=== PATIENT | male | born 1945 | race Caucasian/White ===

== ENCOUNTER 2017-05-30 09:17 | Emergency (ER) | payer MEDICARE, MEDICAID ==
[~2017-05-30] VITALS: Ht 180.3 cm; Wt 122.5 kg
[~2017-05-30 09:17] MED LIST: AMLO10TA2 PO; ATOR10TA PO; BLOO-140 IN; DIPH25TA62 PO; DONE10TA44 PO; ESCI20TA PO; FENO145T PO; GABA-534 PO; INSU100V26 SQ; INSU100V7 SQ; METO-302 PO; PANT40TA4 PO; TEST200V3 IM; TRIA80OI TP
--- NOTE | 2017-05-30 09:20 | NUR ---
Pt bb private ems from [facility] for ble weakness since last night. VSS. Seen by MD for eval. Safety and comfort measures provided. Will monitor.
--- NOTE | 2017-05-30 09:40 | NUR ---
PT TAKEN TO CT.
[2017-05-30 10:09] LABS: BASOPHILS % (AUTO) 0.6 % (0.0-2.0); EOSINOPHILS # (AUTO) 0.3 /CMM (0.0-0.7); EOSINOPHILS % (AUTO) 3.8 % (0.0-6.0); HEMATOCRIT 39 % (39-51); LYMPHOCYTES # (AUTO) 1.3 /CMM (0.8-4.8); LYMPHOCYTES % (AUTO) 16.4 % (20.0-44.0); MEAN CORPUSCULAR HEMOGLOBIN 27 PG (26.0-33.0); MEAN CORPUSCULAR HGB CONC 33 g/dl (31.0-36.0); MEAN CORPUSCULAR VOLUME 81 fL (80-96); MONOCYTES # (AUTO) 0.8 /CMM (0.1-1.30); MONOCYTES % (AUTO) 10.1 % (2.0-12.0); NEUTROPHILS # (AUTO) 5.4 /CMM (1.8-8.9); NEUTROPHILS % (AUTO) 69.1 % (43.0-81.0); PLATELET COUNT (AUTO) 152 /CMM (150-450); RDW COEFFICIENT OF VARIATION 12.7 (11.5-15.0); RED BLOOD CELL COUNT(AUTO) 4.88 MIL/uL (4.5-6.0); WHITE BLOOD COUNT (AUTO) 7.8 K/uL (4.3-11.0)
[2017-05-30 10:16] LABS: CALCIUM, SERUM 8.4 mg/dL (8.5-10.1); CARBON DIOXIDE 28 mmol/L (21-32); CHLORIDE 106 mmol/L (98-107); CREATININE 1.2 mg/dL (0.6-1.3); GLUCOSE 207 mg/dL (74-106); POTASSIUM 4.9 mmol/L (3.5-5.1); SODIUM SERUM 139 mmol/L (136-145); UREA NITROGEN, BLOOD 18 mg/dL (7-18)
[2017-05-30 10:21] LABS: ALANINE AMINOTRANSFERASE 24 U/L (12-78); ALBUMIN 3.1 g/dL (3.4-5.0); ALKALINE PHOSPHATASE 113 U/L (46-116); ASPARTATE AMINOTRANSFERASE 22 U/L (15-37); BILIRUBIN,TOTAL 0.4 mg/dL (0.2-1.0)
--- NOTE | 2017-05-30 11:30 | NUR ---
Patient is resting comfortably in bed with eyes closed. Easily aroused. VSS
[2017-05-30] MEDS ORDERED: LORAZEPAM 1 MG TABLET PO ONE (13:30)
[2017-05-30] MEDS ORDERED: LORAZEPAM 1 MG TABLET ONE (13:31)
--- NOTE | 2017-05-30 13:40 | NUR ---
CALLED [facility] FOR TRANSPORTATION GOING BACK TO [facility] ETA 1 HOUR
[2017-05-30 14:03] VITALS: BP 131/60
--- NOTE | 2017-05-30 14:55 | NUR ---
IV removed. Catheter intact and site benign. Pressure and 4x4 applied to site. No bleeding noted.
--- NOTE | 2017-05-30 15:01 | NUR ---
Patient discharged to home VIA [facility] in stable condition. Written and verbal after care instructions given. Patient AND EMS verbalizeD understanding of instruction.
== END 2017-05-30 15:04 | disposition home or self-care (01) ==
LOC: ER 09:20
DX: R25.3 Fasciculation (principal); E11.65 Type 2 diabetes mellitus with hyperglycemia; E78.5 Hyperlipidemia, unspecified; I10 Essential (primary) hypertension; Z79.4 Long term (current) use of insulin
CPT/HCPCS: 36415; 70450; 80053; 85025; 99285; A4606; Z7610

== ENCOUNTER 2017-07-19 02:27 | Emergency (ER) | payer MEDICARE, MEDICAID ==
[~2017-07-19] VITALS: Ht 182.9 cm; Wt 99.8 kg
--- NOTE | 2017-07-19 02:35 | NUR ---
TO BED 3 BIB PRIVATE AMBULANCE C/O TREMORS X3 DAYS. PT AAOX4 NO ACUTE DISTRESS NOTED, RESP EVEN AND UNLABORED. PT DENIES ANY OTHER COMPLAINTS. PT DENIES PAIN OR DISCOMFORT AT THIS TIME. ER MD AT BEDSIDE TO TOMAS PT.
[2017-07-19] MEDS ORDERED: diphenhydrAMINE HCL 50 MG/ML VIAL ONE (02:49)
--- NOTE | 2017-07-19 02:56 | NUR ---
PT MEDICATED ORDERED.
[2017-07-19] MEDS ORDERED: diphenhydrAMINE HCL 50 MG/ML VIAL IM ONE (03:00)
--- NOTE | 2017-07-19 03:34 | NUR ---
PT ASLEEP, NO ACUTE DISTRESS NOTED, RESP EVEN AND UNLABORED. CALL LIGHT WIHTIN REACH.
--- NOTE | 2017-07-19 03:54 | NUR ---
[facility] CALLED FOR TRANSPORT. ETA 30 MIN.
--- NOTE | 2017-07-19 03:55 | NUR ---
REPORT CALLED TO [facility] STAFF JAN.
--- NOTE | 2017-07-19 04:28 | NUR ---
TRANSPORT AT BEDSIDE REPORT GIVEN TO EMT.
[2017-07-19 04:33] VITALS: BP 135/78
== END 2017-07-19 04:33 | disposition home or self-care (01) ==
LOC: ER 02:28
DX: R25.1 Tremor, unspecified (principal); E11.9 Type 2 diabetes mellitus without complications; E78.5 Hyperlipidemia, unspecified; I10 Essential (primary) hypertension; Z79.4 Long term (current) use of insulin; Z86.73 Personal history of transient ischemic attack (TIA), and cerebral infarction without residual deficits
CPT/HCPCS: 82962; 96372; 99283; A4606; J1200; Z7610

== ENCOUNTER 2017-10-08 23:12 | Emergency (ER) | payer MEDICARE, MEDICAID ==
[~2017-10-08] VITALS: Ht 180.3 cm; Wt 122.0 kg
--- NOTE | 2017-10-08 23:12 | NUR ---
to bed 4 bib paramedics pt was given 400mg seroquel at 2100. pt aaox4 no acute distress noted, resp even and unlabored. er md at bedside to eval pt with orders received.
--- NOTE | 2017-10-08 23:22 | NUR ---
[facility] CALLED ETA 90 MIN. TRANSFER #[id number]
--- NOTE | 2017-10-09 00:24 | NUR ---
transport at bedside report given to emt.
[2017-10-09 00:27] VITALS: BP 130/73
== END 2017-10-09 00:28 | disposition home or self-care (01) ==
LOC: ER 23:15
DX: Z00.8 Encounter for other general examination (principal); E11.9 Type 2 diabetes mellitus without complications; E78.00 Pure hypercholesterolemia, unspecified; I10 Essential (primary) hypertension; Z79.4 Long term (current) use of insulin; Z86.73 Personal history of transient ischemic attack (TIA), and cerebral infarction without residual deficits
CPT/HCPCS: 82962; 99283; A4606; Z7610

== ENCOUNTER 2018-03-06 19:15 | Emergency (ER) | payer MEDICAID, MEDICARE ==
[~2018-03-06] VITALS: Ht 180.3 cm; Wt 117.9 kg
[~2018-03-06 19:15] MED LIST changes: -AMLO10TA2 PO; +AMLO10TA6 PO; -INSU100V26 SQ; +INSU100V30 SQ; -METO-302 PO; +METO-356 PO
--- NOTE | 2018-03-06 19:25 | NUR ---
18G IV TO R AC X 1 ATTEMPT USING ASEPTIC TECH, BLOOD HANDED OVER TO LAB AT THE BEDSIDE. IV FLUSHES EASILY WITH NS, NO S/S INFILTRATION NOTED.
[2018-03-06] MEDS ORDERED: LORAZEPAM INJ 2 MG/ML VIAL IV ONE (19:30)
[2018-03-06] MEDS ORDERED: LORAZEPAM INJ 2 MG/ML VIAL ONE (19:36)
--- NOTE | 2018-03-06 19:37 | NUR ---
PT BBPA FROM SNF C/O OF L ARM SHAKINESS AND DRIFT SINCE "LAST NIGHT". PT IS AAOX4. ABLE TO MOVE ALL EXTREMITIES. L ARM DRIFT NOTED WHILE MD BEDSIDE EVALUATING PT. PT STATES "THIS HAPPENS ONCE A YEAR". RESP EVEN AND UNLABORED. NO S/S OF ACUTE DISTRESS NOTED. VSS. PT SAFETY AND COMOFRT MEASURES IN PLACE. PT PLACED ON MONITOR AND POX. CALL LIGHT WITHIN REACH. MD BEDSIDE. BLOOD SPECIMEN SENT TO LAB. WILL CONTINUE TO MONITOR PT.
[2018-03-06 19:41] LABS: BASOPHILS % (AUTO) 0.7 % (0.0-2.0); EOSINOPHILS % (AUTO) 3.8 % (0.0-6.0); HEMATOCRIT 41 % (39-51); HEMOGLOBIN 13.7 g/dL (13.5-17.5); LYMPHOCYTES # (AUTO) 0.9 /CMM (0.8-4.8); LYMPHOCYTES % (AUTO) 15.9 % (20.0-44.0); MEAN CORPUSCULAR HGB CONC 33 g/dl (31.0-36.0); MEAN CORPUSCULAR VOLUME 80 fL (80-96); MONOCYTES # (AUTO) 0.4 /CMM (0.1-1.30); MONOCYTES % (AUTO) 7.4 % (2.0-12.0); NEUTROPHILS # (AUTO) 4.2 /CMM (1.8-8.9); NEUTROPHILS % (AUTO) 72.2 % (43.0-81.0); PLATELET COUNT (AUTO) 154 /CMM (150-450); RDW COEFFICIENT OF VARIATION 13.6 (11.5-15.0); RED BLOOD CELL COUNT(AUTO) 5.16 MIL/uL (4.5-6.0); WHITE BLOOD COUNT (AUTO) 5.7 K/uL (4.3-11.0)
[2018-03-06 19:47] LABS: CALCIUM, SERUM 8.6 mg/dL (8.5-10.1); CARBON DIOXIDE 28 mmol/L (21-32); CHLORIDE 103 mmol/L (98-107); CREATININE 1.1 mg/dL (0.6-1.3); GLUCOSE 310 mg/dL (74-106); POTASSIUM 4.9 mmol/L (3.5-5.1); SODIUM SERUM 138 mmol/L (136-145); UREA NITROGEN, BLOOD 18 mg/dL (7-18)
[2018-03-06 19:51] LABS: INR 0.87 (0.85-1.15)
[2018-03-06 19:54] LABS: ALANINE AMINOTRANSFERASE 25 U/L (12-78); ALBUMIN 3.3 g/dL (3.4-5.0); ALKALINE PHOSPHATASE 143 U/L (46-116); ASPARTATE AMINOTRANSFERASE 12 U/L (15-37); BILIRUBIN,DIRECT 0.1 mg/dL (0.0-0.2); BILIRUBIN,TOTAL 0.3 mg/dL (0.2-1.0); TOTAL PROTEIN, SERUM 6.6 g/dL (6.4-8.2)
[2018-03-06 19:55] LABS: TROPONIN I < 0.017 ng/mL (0.00-0.056)
--- NOTE | 2018-03-06 20:39 | NUR ---
Patient is resting comfortably in bed with eyes closed. Easily aroused. VSS. NO S/S OF DISTRESS NOTED. WILL CONTINUE TO MONITOR
--- NOTE | 2018-03-06 21:28 | NUR ---
[id number] [facility] concetta fitzgerald took report for patient trasnport
--- NOTE | 2018-03-06 21:31 | NUR ---
CALLED [facility] FOR TRANSPORT BACK TO [facility], ETA [phone], TRIP #[id number]
--- NOTE | 2018-03-06 22:05 | NUR ---
Patient is resting comfortably in bed with eyes closed. Easily aroused. VSS
--- NOTE | 2018-03-06 23:20 | NUR ---
AMBUL BEDSIDE TO RECEIVE REPORT. REPORT GIVEN TO AMBUL TRANSPORT TEAM. PT BEING DISCHARGED BACK TO FACILITY.
--- NOTE | 2018-03-06 23:23 | NUR ---
Patient discharged to home in stable condition. Written and verbal after care instructions given. Patient verbalizes understanding of instruction.IV removed. Catheter intact and site benign. Pressure and 4x4 applied to site. No bleeding noted. VSS upon discharge.
[2018-03-06 23:24] VITALS: BP 145/78
== END 2018-03-06 23:25 | disposition home or self-care (01) ==
LOC: ER 19:16
DX: R25.1 Tremor, unspecified (principal); R25.3 Fasciculation; E11.9 Type 2 diabetes mellitus without complications; E78.00 Pure hypercholesterolemia, unspecified; I10 Essential (primary) hypertension; I70.0 Atherosclerosis of aorta; Z79.4 Long term (current) use of insulin; Z86.73 Personal history of transient ischemic attack (TIA), and cerebral infarction without residual deficits; Z60.2 Problems related to living alone
CPT/HCPCS: 36415; 70450; 71045; 80048; 80076; 82962; 84484; 85025; 85730; 93005; 96374; 99285; A4606; J2060; Z7610

== ENCOUNTER 2019-03-01 11:46 | Emergency (ER) | payer MEDICARE, MEDICAID ==
[~2019-03-01] VITALS: Ht 180.3 cm; Wt 134.7 kg
[~2019-03-01 11:46] MED LIST changes: -AMLO10TA6 PO; +AMLO10TA7 PO
--- NOTE | 2019-03-01 12:00 | NUR ---
SHAKING EPISODES X 2 DAYS,STS IT HAPPENS TWICE A YEAR. PT AAOX3, VSS. DENIES CP, SOB, DIZZINESS, N/V/D AT THIS TIME. AWAITING EVAL BY CASEY/PA & WILL CONT TO MONITOR.
[2019-03-01 12:13] LABS: BASOPHILS # (AUTO) 0.1 /CMM (0.0-0.2); BASOPHILS % (AUTO) 0.9 % (0.0-2.0); EOSINOPHILS % (AUTO) 2.9 % (0.0-6.0); HEMATOCRIT 38 % (39-51); HEMOGLOBIN 12.6 g/dL (13.5-17.5); LYMPHOCYTES # (AUTO) 0.9 /CMM (0.8-4.8); LYMPHOCYTES % (AUTO) 9.2 % (20.0-44.0); MEAN CORPUSCULAR HGB CONC 33 g/dl (31.0-36.0); MEAN CORPUSCULAR VOLUME 83 fL (80-96); MONOCYTES # (AUTO) 0.7 /CMM (0.1-1.30); MONOCYTES % (AUTO) 6.7 % (2.0-12.0); NEUTROPHILS # (AUTO) 7.8 /CMM (1.8-8.9); NEUTROPHILS % (AUTO) 80.3 % (43.0-81.0); PLATELET COUNT (AUTO) 136 /CMM (150-450); RED BLOOD CELL COUNT(AUTO) 4.61 MIL/uL (4.5-6.0); WHITE BLOOD COUNT (AUTO) 9.7 K/uL (4.3-11.0)
[2019-03-01] MEDS ORDERED: diphenhydrAMINE HCL 50 MG/ML VIAL ONE (12:27)
[2019-03-01] MEDS ORDERED: LORAZEPAM INJ 2 MG/ML VIAL ONE ×2 (12:27→13:22)
[2019-03-01] MEDS ORDERED: LORAZEPAM INJ 2 MG/ML VIAL IV ONE ×2 (12:30→13:30)
[2019-03-01] MEDS ORDERED: diphenhydrAMINE HCL 50 MG/ML VIAL IV ONE (12:30)
[2019-03-01 12:32] LABS: CALCIUM, SERUM 8.2 mg/dL (8.5-10.1); CARBON DIOXIDE 25 mmol/L (21-32); CHLORIDE 106 mmol/L (98-107); CREATININE 1.5 mg/dL (0.6-1.3); GLUCOSE 197 mg/dL (74-106); POTASSIUM 5.3 mmol/L (3.5-5.1); SODIUM SERUM 140 mmol/L (136-145); UREA NITROGEN, BLOOD 42 mg/dL (7-18)
--- NOTE | 2019-03-01 12:35 | NUR ---
MEDICATED PER ERMD ORDER, PT NAYE WELL.
[2019-03-01 12:39] LABS: ALANINE AMINOTRANSFERASE 27 U/L (12-78); ALBUMIN 3.2 g/dL (3.4-5.0); ALKALINE PHOSPHATASE 152 U/L (46-116); ASPARTATE AMINOTRANSFERASE 18 U/L (15-37); BILIRUBIN,TOTAL 0.2 mg/dL (0.2-1.0); LIPASE 178 U/L (73-393); TOTAL PROTEIN, SERUM 6.5 g/dL (6.4-8.2)
--- NOTE | 2019-03-01 13:59 | NUR ---
CALLED [facility] FOR TRANSPORT ETA OF [phone] WAS GIVEN. TRIP#[id number]
[2019-03-01 15:55] VITALS: BP 136/78
--- NOTE | 2019-03-01 16:11 | NUR ---
MARTHA VASQUEZ FROM [facility] INFORMED THAT PT IS GOING BACK TO THEIR FACILITY
== END 2019-03-01 16:15 ==
LOC: ER 11:49
DX: G25.9 Extrapyramidal and movement disorder, unspecified (principal); I10 Essential (primary) hypertension; F03.90 Unspecified dementia, unspecified severity, without behavioral disturbance, psychotic disturbance, mood disturbance, and anxiety; E11.9 Type 2 diabetes mellitus without complications; E78.5 Hyperlipidemia, unspecified; E78.00 Pure hypercholesterolemia, unspecified; Z86.73 Personal history of transient ischemic attack (TIA), and cerebral infarction without residual deficits; Z79.4 Long term (current) use of insulin; Z79.899 Other long term (current) drug therapy
CPT/HCPCS: 36415; 80048; 80076; 82962; 83690; 84484; 85025; 96374; 96375; 96376; 99283; J1200; J2060 ×2

== ENCOUNTER 2019-04-15 12:22 | Inpatient (IN) | payer MEDICARE, MEDICAID ==
[~2019-04-15] VITALS: Ht 177.8 cm; Wt 127.5 kg
--- NOTE | 2019-04-15 12:34 | NUR ---
DR MURILLO AT BEDSIDE FOR EVAL.
[2019-04-15 12:48] LABS: BASOPHILS % (AUTO) 0.2 % (0.0-2.0); HEMATOCRIT 36 % (39-51); LYMPHOCYTES # (AUTO) 0.9 /CMM (0.8-4.8); LYMPHOCYTES % (AUTO) 12.4 % (20.0-44.0); MEAN CORPUSCULAR HGB CONC 33 g/dl (31.0-36.0); MEAN CORPUSCULAR VOLUME 83 fL (80-96); MONOCYTES # (AUTO) 0.8 /CMM (0.1-1.30); MONOCYTES % (AUTO) 10.8 % (2.0-12.0); NEUTROPHILS # (AUTO) 5.5 /CMM (1.8-8.9); NEUTROPHILS % (AUTO) 76.6 % (43.0-81.0); PLATELET COUNT (AUTO) 192 /CMM (150-450); RED BLOOD CELL COUNT(AUTO) 4.39 MIL/uL (4.5-6.0); WHITE BLOOD COUNT (AUTO) 7.2 K/uL (4.3-11.0)
--- NOTE | 2019-04-15 12:49 | NUR ---
CALLED FOR TELE BED, TURNED IN MOVE SHEET
[2019-04-15] MEDS ORDERED: ENOX40DI SQ (12:53)
[2019-04-15] MEDS ORDERED: LOSA100T31 PO (12:53)
[2019-04-15] MEDS ORDERED: INSU100V27 SQ (12:53)
[2019-04-15] MEDS ORDERED: DOCU-141 PO (12:53)
[2019-04-15] MEDS ORDERED: MULT-447 PO (12:53)
[2019-04-15] MEDS ORDERED: QUET25TA PO (12:53)
[2019-04-15] MEDS ORDERED: MAGN400O6 PO (12:53)
[2019-04-15] MEDS ORDERED: FURO-145 PO (12:53)
[2019-04-15] MEDS ORDERED: BISA10SU8 RC (12:53)
[2019-04-15] MEDS ORDERED: PREG75CA PO (12:53)
[2019-04-15] MEDS ORDERED: ACET-868 PO (12:53)
[2019-04-15] MEDS ORDERED: PIOG45TA5 PO (12:53)
[2019-04-15] MEDS ORDERED: SACC250C PO (12:53)
[2019-04-15] MEDS ORDERED: LORA1TAB PO (12:53)
[2019-04-15] MEDS ORDERED: NA P133E RC (12:53)
[2019-04-15] MEDS ORDERED: ASPI-1169 PO (12:53)
[2019-04-15] MEDS ORDERED: RANI150T8 PO (12:53)
[2019-04-15] MEDS ORDERED: METO2.5T2 PO (12:53)
[2019-04-15] MEDS ORDERED: ASCO10007 PO (12:53)
[2019-04-15] MEDS ORDERED: METF-440 PO (12:53)
[2019-04-15] MEDS ORDERED: ONDA4TAB5 PO (12:53)
--- NOTE | 2019-04-15 12:56 | NUR ---
RADIOLOGY AT BEDSIDE FOR CHEST XRAY.
[2019-04-15] MEDS ORDERED: IV NS 0.9% 1,000 ML BAG IV ONE (13:00)
--- NOTE | 2019-04-15 13:00 | NUR ---
PT TO RADIOLOGY FOR HEAD CT SCAN VIA [facility].
[2019-04-15 13:13] LABS: ALANINE AMINOTRANSFERASE 27 U/L (12-78); ALBUMIN 3.2 g/dL (3.4-5.0); ALKALINE PHOSPHATASE 137 U/L (46-116); ASPARTATE AMINOTRANSFERASE 14 U/L (15-37); BILIRUBIN,DIRECT 0.1 mg/dL (0.0-0.2); BILIRUBIN,TOTAL 0.5 mg/dL (0.2-1.0); CALCIUM, SERUM 8.2 mg/dL (8.5-10.1); CARBON DIOXIDE 28 mmol/L (21-32); CHLORIDE 92 mmol/L (98-107); CREATININE 1.8 mg/dL (0.6-1.3); SODIUM SERUM 129 mmol/L (136-145); TOTAL PROTEIN, SERUM 6.6 g/dL (6.4-8.2); UREA NITROGEN, BLOOD 65 mg/dL (7-18)
[2019-04-15 13:15] LABS: GLUCOSE 513 mg/dL (74-106)
--- NOTE | 2019-04-15 13:51 | NUR ---
CALLED [facility] ANSWERING SERVICE WAS PAGED.
[2019-04-15 13:54] LABS: APPEARANCE,URINE Slightly Cloudy (CLEAR); BILIRUBIN,URINE Negative (NEGATIVE); BLOOD, URINE Negative Ery/uL (NEGATIVE); COLOR,URINE Yellow (YELLOW); KETONES,URINE Trace (NEGATIVE); LEUKOCYTE ESTERASE ,URINE Negative (NEGATIVE); NITRITE, URINE Negative (NEGATIVE); PROTEIN,URINE Negative (NEGATIVE); UGLUCOSE >=1000 mg/dL (NEGATIVE); UROBILINOGEN,URINE 0.2 EU/dL (0.2)
[2019-04-15 14:00] LABS: BACTERIA,URINE None seen /HPF (None Seen); RBC,URINE 0-2 /HPF (0-2); SQUAMOUS EPITHELIAL CELL,UR Few /HPF (None Seen); WBC,URINE 0-3 /HPF (0-3)
[2019-04-15] MEDS ORDERED: INSULIN REGULAR, HUMAN 100 UNIT/ML 10 ML VIAL SQ ONE (14:00)
[2019-04-15] MEDS ORDERED: INSULIN REGULAR, HUMAN 100 UNIT/ML 10 ML VIAL ONE (14:01)
--- NOTE | 2019-04-15 14:45 | NUR ---
REPORT GIVEN TO PRESCIOUS RN. AWAITING TRANSFER TO FLOOR.
--- NOTE | 2019-04-15 15:50 | NUR ---
RN NOTES RECEIVED PATIENT ON GURNEY, A/A/OX2-3,ABLE TO RESPOND APPROPRIATELY. ON OXYGEN SUPPORT VIA NASAL CANNULA AT 2LPM, SATING AT 84%, CRACKLES ON AUSCULTATION. PATIENT VITAL SIGNS TAKEN AND NOTED, SKIN ASSESSMENT DONE WHILE CLEANING THE PATIENT: SKIN IS INTACT. PATIENT PLACED ON FRANCHISE SALES REPRESENTATIVE THEN KEPT WARMTH AND COMFORTABLE. PATIENT HAS HAD VERBALIZED DESIRES TO BE ON FULL CODE IN CASE OF CARDIORESPIRATORY FAILURE. PATIENT HAS NO COMPLAINT OF SOB OR ANY KIND OF PAIN AT THIS TIME. ALL BELONGINGS ACCOUNTED FOR. PATIENT ORIENTED TO ROOM AND USE OF CALL LIGHT. HOB ELEVATED. SAFETY MEASURES PUT IN PLACE. BED PLACED IN LOW AND LOCKED POSITION. CALL LIGHT PLACED WITHIN REACH.
[2019-04-15 16:00] VITALS: BP 111/54
[2019-04-15] MEDS ORDERED: IV NS 0.9% 1,000 ML IV PRN (16:25)
[2019-04-15] MEDS ORDERED: ACETAMINOPHEN 325 MG TABLET PO PRN (16:30)
[2019-04-15] MEDS ORDERED: ONDANSETRON HCL/PF 4 MG/2 ML VIAL IVP PRN (16:30)
[2019-04-15] MEDS ORDERED: Z GUARD REMEDY 2 OZ OINT TP PRN (16:30)
[2019-04-15] MEDS ORDERED: MAG HYDROX/AL HYDROX/SIMETH 30 ML UDC PO PRN (16:30)
[2019-04-15] MEDS ORDERED: MAGNESIUM HYDROXIDE 30 ML UDC PO PRN (16:30)
[2019-04-15] MEDS ORDERED: NA PHOS,M-B/NA PHOS,DI-BA 1 EA ENEMA RC PRN (17:00)
[2019-04-15] MEDS ORDERED: LORAZEPAM 1 MG TABLET PO PRN (17:00)
[2019-04-15] MEDS ORDERED: BISACODYL SUPP (10 MG) 10 MG/SUPP.RECT SUPP.RECT RC PRN (17:00)
[2019-04-15] MEDS ORDERED: DEXTROSE 50%-WATER 50 ML DISP.SYRIN IV PRN (17:00)
[2019-04-15 17:13] LABS: ABG BASE EXCESS -1.6 mmol/L; ABG PCO2 42.4 mmHg (35.0-45.0); ABG PH 7.366 (7.350-7.450); ABG PO2 59.4 mmHg (75.0-100.0); AaDO2 39.6 mmHg; COHb 0.5 % (0.5-1.5); MetHb 0.6 % (0.0-1.5); SITE, ABG Right Radial; VENT MODE, BG R/A
--- NOTE | 2019-04-15 18:00 | NUR ---
RN NOTES CALLED RONALD RASHEED NP AND INFORMED HIM ABOUT PATIENT'S ABG RESULTS AND ABOUT LUNGS SOUND AND IF ITS [place] TO INFUSE THE IV FLUIDS, PER THE LATER IT'S FINE.
[2019-04-15] MEDS: BLOOD SUGAR DIAGNOSTIC 1 EACH STRIP IN SCH ×2 (18:06→21:15)
[2019-04-15] MEDS: INSULIN REGULAR, HUMAN 100 UNIT/ML 3 ML VIAL SQ PRN ×2 (18:08→21:21)
[2019-04-15] MEDS: IV NS 0.9% 1,000 ML IV PRN (18:09)
--- NOTE | 2019-04-15 19:30 | NUR ---
RN NOTES ENDORSED FOR CONTINUITY OF CARE. NOT ON ANY FORM OF DISTRESS. ALL NURSING NEEDS ATTENDED AND MET. SAFETY MEASURES IN PLACE. CALL LIGHT WITHIN REACH. DAUGHTER AT BEDSIDE, ALL QUESTION AND CONCERNS ADDRESSED APPROPRIATELY
[2019-04-15 20:00] VITALS: BP 104/66
--- NOTE | 2019-04-15 20:00 | NUR ---
RN INITIAL NOTES RECEIVED PATIENT IN BED, A&OX2-3,DAUGHTER AT BEDSIDE . ON NASAL CANNULA AT 2LPM, SAT 95%.IV IN R HAND #22, NS D5 1/2NS @50.DAVENPORT IN PLACE. ON TELE SR HR 86 . ALL SAFETY PRECAUTIONS TAKE. CALL LIGHT WITH IN REACH WILL CANT TO MONITOR.
[2019-04-15] MEDS: DOCUSATE SODIUM 100 MG CAPSULE PO SCH (21:13)
[2019-04-15] MEDS: DONEPEZIL 5 MG TABLET PO SCH (21:13)
[2019-04-15] MEDS: ATORVASTATIN 10 MG TABLET PO SCH (21:13)
[2019-04-15] MEDS: QUETIAPINE FUMARATE 100 MG TABLET PO SCH (21:14)
[2019-04-15] MEDS: PREGABALIN 25 MG CAPSULE PO SCH (21:14)
[2019-04-15] MEDS: HEPARIN SODIUM, PORCINE 5000 UNITS/1 ML VIAL SQ SCH (21:15)
[2019-04-15] MEDS: INSULIN GLARGINE, 100 UNIT/ML CARTRIDGE SQ SCH (21:19)
[2019-04-16] VITALS: BP 101/56
[2019-04-16 04:00] VITALS: BP 122/60
[2019-04-16] MEDS: PREGABALIN 25 MG CAPSULE PO SCH ×3 (04:57→21:23)
[2019-04-16] MEDS: HEPARIN SODIUM, PORCINE 5000 UNITS/1 ML VIAL SQ SCH ×3 (04:57→21:24)
--- NOTE | 2019-04-16 06:05 | NUR ---
RN CLOSING NOTES NO SIGNIFICANT CHANGE IN PTS CONDITION OVERNIGHT. PT REMAINED STABLE. ALL NEEDS MET.ALL SAFETY MEASURES IN PLACE. CALL LIGHT WITHIN REACH. WILL ENDORSE TO AM RN.
--- NOTE | 2019-04-16 07:00 | NUR ---
RN NOTES RECEIVED PATIENT ON BED, A/O x2 , ON 3 L O2 N/C , NO DISTRESS NOTED, ON TELE SR HR IN 90'S , DAVENPORT DRINING TO GRAVITY , R HAND IV SITE G 2O ,SITE CLEAN, DRY AND INTACT WITH NS D5 1/2NS @50 RUNNING ,SR UP x3, CALL LIGHT WITHIN EASY REACH, BED LOCKED AND IN LOWEST POSITION , WILL TO MONITOR.
[2019-04-16 07:26] LABS: BASOPHILS % (AUTO) 0.3 % (0.0-2.0); EOSINOPHILS % (AUTO) 0.1 % (0.0-6.0); HEMATOCRIT 33 % (39-51); HEMOGLOBIN 10.8 g/dL (13.5-17.5); LYMPHOCYTES # (AUTO) 0.8 /CMM (0.8-4.8); LYMPHOCYTES % (AUTO) 10.4 % (20.0-44.0); MEAN CORPUSCULAR HGB CONC 33 g/dl (31.0-36.0); MEAN CORPUSCULAR VOLUME 82 fL (80-96); MONOCYTES # (AUTO) 1.4 /CMM (0.1-1.30); MONOCYTES % (AUTO) 18.5 % (2.0-12.0); NEUTROPHILS # (AUTO) 5.4 /CMM (1.8-8.9); NEUTROPHILS % (AUTO) 70.7 % (43.0-81.0); PLATELET COUNT (AUTO) 173 /CMM (150-450); RED BLOOD CELL COUNT(AUTO) 3.99 MIL/uL (4.5-6.0); WHITE BLOOD COUNT (AUTO) 7.7 K/uL (4.3-11.0)
[2019-04-16 07:54] LABS: CALCIUM, SERUM 7.9 mg/dL (8.5-10.1); CARBON DIOXIDE 24 mmol/L (21-32); CHLORIDE 93 mmol/L (98-107); CREATININE 3.1 mg/dL (0.6-1.3); GLUCOSE 318 mg/dL (74-106); PHOSPHORUS 4.3 mg/dL (2.5-4.9); POTASSIUM 4.7 mmol/L (3.5-5.1); SODIUM SERUM 128 mmol/L (136-145); UREA NITROGEN, BLOOD 78 mg/dL (7-18)
[2019-04-16 08:00] VITALS: BP_SYST 100; BP_SYST 143; BP_DIAS 53; BP_DIAS 90
[2019-04-16 08:09] LABS: CHOLESTEROL 85 mg/dL (<200); HDL CHOLESTEROL 43 mg/dL (40-60); LDL 29 mg/dL (0-99); THYROID STIMULATING HORMONE 0.922 uIU/mL (0.358-3.74); TRIGLYCERIDES 128 mg/dL (30-150)
[2019-04-16] MEDS: INSULIN REGULAR, HUMAN 100 UNIT/ML 3 ML VIAL SQ PRN ×3 (08:10→18:12)
[2019-04-16] MEDS: PIOGLITAZONE HCL 15 MG TABLET PO SCH (08:11)
[2019-04-16] MEDS: QUETIAPINE FUMARATE 100 MG TABLET PO SCH ×2 (08:11→21:23)
[2019-04-16] MEDS: BLOOD SUGAR DIAGNOSTIC 1 EACH STRIP IN SCH ×4 (08:11→21:25)
[2019-04-16] MEDS: ASCORBIC ACID 500 MG TABLET PO SCH (08:12)
[2019-04-16] MEDS: MULTIVIT W/MINERALS 1 TAB TABLET PO SCH (08:12)
[2019-04-16] MEDS: DOCUSATE SODIUM 100 MG CAPSULE PO SCH ×2 (08:12→21:23)
[2019-04-16] MEDS: ESCITALOPRAM OXALATE (10 MG) 10 MG TABLET PO SCH (08:12)
[2019-04-16] MEDS: ASPIRIN 81 MG TAB.CHEW PO SCH (08:12)
[2019-04-16] MEDS: LACTOBACILLUS RHAMNOSUS GG 1 EACH CAP.SPRINK PO SCH (08:12)
[2019-04-16] MEDS: FAMOTIDINE (20 MG) 20 MG TABLET PO SCH (08:12)
--- NOTE | 2019-04-16 09:00 | NUR ---
RN NOTES PT WAKES UP TO VERBAL STIMULI, MORE LETHARGIC , PHIL RASHEED NATUROPATH NOTIFED , ABG ORDERED. VSS STABLE, CONTINUE TO MONITOR .
[2019-04-16] MEDS ORDERED: LEVOFLOXACIN 500 MG /D5W 100ML 500 MG in PREMIX 1 EA IV SCH (10:00)
[2019-04-16 10:18] LABS: ABG BASE EXCESS -4.3 mmol/L; ABG OXYGEN SATURATION 94.3 % (92.0-98.5); ABG PH 7.319 (7.350-7.450); ABG PO2 81.3 mmHg (75.0-100.0); AaDO2 82.1 mmHg; COHb 0.3 % (0.5-1.5); MetHb 0.6 % (0.0-1.5); O2Hb 93.5 % (94.0-97.0); SITE, ABG Right Radial; VENT MODE, BG NC 3L
[2019-04-16] MEDS ORDERED: methylPREDNISolone SOD SUCC 125 MG/2ML VIAL IV ONE (10:30)
[2019-04-16] MEDS: ALBUTEROL FS 2.5 MG/0.5 ML VIAL.NEB NEB SCH ×3 (10:49→19:42)
[2019-04-16] MEDS: IPRATROPIUM NEB FS 0.5 MG/2.5 ML AMPUL.NEB NEB SCH ×3 (10:49→19:42)
--- NOTE | 2019-04-16 11:00 | NUR ---
RN NOTES DR HELMS AND DR ARNOLD AT THE BEDSIDE SEEING THE PATIENT , VSS STABLE, PT OPENS EYES TO VERBAL STIMULI,
[2019-04-16 11:17] LABS: BAND % (MANUAL) 6 % (0.0-5.0); LYMPHOCYTES % (MANUAL) 9 % (16-48); MONOCYTES % (MANUAL) 17 % (0-11.0); NEUTROPHILS % (MANUAL) 68 (42-76)
[2019-04-16 12:00] VITALS: BP 94/53
[2019-04-16] MEDS: methylPREDNISolone SOD SUCC 40 MG/ML VIAL IV SCH ×2 (12:47→17:31)
[2019-04-16] MEDS: PIPERACILLIN /TAZOBACTAM 2.25 G in IV D5W 50 ML IV SCH ×3 (12:47→23:43)
[2019-04-16] MEDS: IV NS 0.9% 1,000 ML IV PRN ×2 (12:55→23:43)
[2019-04-16 13:32] LABS: APPEARANCE,URINE CLOUDY (CLEAR); BILIRUBIN,URINE 1+ (NEGATIVE); BLOOD, URINE 3+ Ery/uL (NEGATIVE); COLOR,URINE YELLOW (YELLOW); KETONES,URINE NEGATIVE (NEGATIVE); LEUKOCYTE ESTERASE ,URINE 2+ (NEGATIVE); NITRITE, URINE NEGATIVE (NEGATIVE); PROTEIN,URINE 1+ mg/dl (NEGATIVE); UGLUCOSE TRACE mg/dL (NEGATIVE); UROBILINOGEN,URINE 0.2 EU/dL (0.2)
[2019-04-16 13:42] LABS: BACTERIA,URINE Moderate /HPF (None Seen); RBC,URINE 81-100 /HPF (0-2); SQUAMOUS EPITHELIAL CELL,UR Rare /HPF (None Seen); YEAST,URINE Few /HPF (None Seen)
[2019-04-16 13:43] LABS: URINE AMORPHOUS URATE Moderate /HPF (None Seen)
[2019-04-16 13:49] LABS: CREATININE, URINE 243.3 MG/DL (30.0-125.0); URINE TOTAL PROTEIN 99.7 mg/dL (0-11.9)
[2019-04-16 14:29] LABS: EOSINOPHIL,URINE None Seen
[2019-04-16 16:00] VITALS: BP 99/54
--- NOTE | 2019-04-16 16:00 | NUR ---
RN NOTES REPORT GIVEN TO DEMARCUS VASQUEZ FOR CONTINUITY OF CARE .
--- NOTE | 2019-04-16 18:01 | NUR ---
TEL NURSE, BLOOD SUGAR OF 430 ,STAT LAB ORDERED AND CALLED TO PRIMARY DOC AND WILL CONTINUR TO CARRIED ORDERS WILL GIVE 10 UNITS ORDERED
--- NOTE | 2019-04-16 18:15 | NUR ---
MEDICAID BILLING CLERK NOTE 10 UNITS INSULIN GIVEN PER PROTOCOL
--- NOTE | 2019-04-16 19:58 | NUR ---
EXHAUST EQUIPMENT OPERATOR CLOSING NOTE PATIENT ON BED, A/O x2 , ON 3 L O2 N/C , NO DISTRESS NOTED, ON TELE SR HR IN 90'S , DAVENPORT DRAINING TO GRAVITY , R HAND IV SITE G 2O ,SITE CLEAN, DRY AND INTACT WITH NS D5 1/2NS @50 RUNNING ,SR UP x3, CALL LIGHT WITHIN EASY REACH, BED LOCKED AND IN LOWEST POSITION , CARE ENDORSED TO PSYCHOLOGICAL ANTHROPOLOGIST RN.
[2019-04-16 20:00] VITALS: BP 124/70
--- NOTE | 2019-04-16 20:00 | NUR ---
RN INITIAL NOTES RECEIVED PATIENT ON BED, A/O x2 , ON 3 L O2 N/C , NO DISTRESS NOTED, ON TELE SR HR IN 90'S , DAVENPORT DRAINING TO GRAVITY , R HAND IV SITE G 2O ,SITE CLEAN, DRY AND INTACT WITH 0.9 NS @50 RUNNING, SR UP x3, CALL LIGHT WITHIN EASY REACH, BED LOCKED AND IN LOWEST POSITION, WILL CONT TO MONITOR.
[2019-04-16] MEDS: DONEPEZIL 5 MG TABLET PO SCH (21:22)
[2019-04-16] MEDS: ATORVASTATIN 10 MG TABLET PO SCH (21:23)
[2019-04-16] MEDS: INSULIN GLARGINE, 100 UNIT/ML CARTRIDGE SQ SCH (21:32)
[2019-04-16] MEDS ORDERED: INSULIN REGULAR, HUMAN 100 UNIT/ML 3 ML VIAL SQ PRN (22:00)
[2019-04-16] MEDS ORDERED: DEXTROSE 50%-WATER 50 ML DISP.SYRIN IV PRN (22:00)
[2019-04-16] MEDS ORDERED: *INSULIN REGULAR(HUMULIN R)HUM 100 UNIT/ML VIAL SQ PRN (22:00)
[2019-04-16] MEDS ORDERED: BLOOD SUGAR DIAGNOSTIC 1 EACH STRIP VI SCH (22:00)
--- NOTE | 2019-04-16 22:30 | NUR ---
RN NOTES PT BLOOD SUGAR WAS 420 DR ARIELLE BEGUM WAS NOTIFIED. ORDERED SLIDING SCALE TO BE CHANGED FROM MILD SLIDING SCALE TO MODERATE SLIDING SCALE AND 10 UNITE OF INSULIN TO BE GIVEN PER MODERATE SLIDING SCALE.
[2019-04-17] VITALS: BP 116/64
[2019-04-17] MEDS ORDERED: DEXTROSE 50%-WATER 50 ML DISP.SYRIN IV PRN
--- NOTE | 2019-04-17 | NUR ---
RN NOTES BLOOD SUGAR WAS CHECKED AND BS WAS 412, MD ONCE AGAIN NOTIFIED AND AGGRESSIVE SLIDING SCALE WAS ORDERED. 10 UNITES INSULIN WAS GIVEN PER SLIDING SCALE.
[2019-04-17] MEDS: BLOOD SUGAR DIAGNOSTIC 1 EACH STRIP IN SCH ×5 (00:44→22:16)
[2019-04-17] MEDS: *INSULIN REGULAR(HUMULIN R)HUM 100 UNIT/ML VIAL SQ PRN ×2 (00:53→22:30)
[2019-04-17 04:00] VITALS: BP 106/59
[2019-04-17] MEDS: PIPERACILLIN /TAZOBACTAM 2.25 G in IV D5W 50 ML IV SCH ×4 (05:25→23:17)
[2019-04-17] MEDS: HEPARIN SODIUM, PORCINE 5000 UNITS/1 ML VIAL SQ SCH ×3 (05:26→20:23)
[2019-04-17] MEDS: PREGABALIN 25 MG CAPSULE PO SCH ×3 (05:30→20:22)
--- NOTE | 2019-04-17 06:14 | NUR ---
RN CLOSING NOTES PT HAD BLOOD SUGAR ABOVE 400 OVERNIGHT. INSULIN WAS GIVEN ORDERED BY MD. ALL NEEDS ANTICIPATED AND MET. ALL SAFETY MEASURES IN PLACE. CALL LIGHT WITHIN REACH. WILL ENDORSE TO AM RN.
[2019-04-17 07:03] LABS: BASOPHILS % (AUTO) 0.1 % (0.0-2.0); HEMATOCRIT 32 % (39-51); HEMOGLOBIN 10.4 g/dL (13.5-17.5); LYMPHOCYTES # (AUTO) 0.4 /CMM (0.8-4.8); LYMPHOCYTES % (AUTO) 10.1 % (20.0-44.0); MEAN CORPUSCULAR HGB CONC 33 g/dl (31.0-36.0); MEAN CORPUSCULAR VOLUME 81 fL (80-96); MONOCYTES # (AUTO) 0.4 /CMM (0.1-1.30); MONOCYTES % (AUTO) 9.6 % (2.0-12.0); NEUTROPHILS # (AUTO) 2.9 /CMM (1.8-8.9); NEUTROPHILS % (AUTO) 80.2 % (43.0-81.0); PLATELET COUNT (AUTO) 172 /CMM (150-450); RED BLOOD CELL COUNT(AUTO) 3.92 MIL/uL (4.5-6.0); WHITE BLOOD COUNT (AUTO) 3.7 K/uL (4.3-11.0)
[2019-04-17] MEDS: ALBUTEROL FS 2.5 MG/0.5 ML VIAL.NEB NEB SCH ×4 (07:12→20:13)
[2019-04-17] MEDS: IPRATROPIUM NEB FS 0.5 MG/2.5 ML AMPUL.NEB NEB SCH ×4 (07:12→20:14)
[2019-04-17 07:21] LABS: ALANINE AMINOTRANSFERASE 19 U/L (12-78); ALBUMIN 2.5 g/dL (3.4-5.0); ALKALINE PHOSPHATASE 100 U/L (46-116); ASPARTATE AMINOTRANSFERASE 8 U/L (15-37); BILIRUBIN,TOTAL 0.3 mg/dL (0.2-1.0); CALCIUM, SERUM 8.1 mg/dL (8.5-10.1); CARBON DIOXIDE 27 mmol/L (21-32); CHLORIDE 96 mmol/L (98-107); CREATININE 2.2 mg/dL (0.6-1.3); MAGNESIUM 2.3 mg/dL (1.8-2.4); PHOSPHORUS 3.6 mg/dL (2.5-4.9); POTASSIUM 4.4 mmol/L (3.5-5.1); SODIUM SERUM 131 mmol/L (136-145); TOTAL PROTEIN, SERUM 5.8 g/dL (6.4-8.2); UREA NITROGEN, BLOOD 74 mg/dL (7-18)
[2019-04-17 07:23] LABS: CREATINE KINASE, TOTAL 109 U/L (39-308)
[2019-04-17 07:37] LABS: GLUCOSE 401 mg/dL (74-106)
--- NOTE | 2019-04-17 07:38 | NUR ---
TELE1/RN AM SHIFT INITIAL NOTES RECEIVED PT ASLEEP IN BED, EASILY AROUSEABLE, PT A/O X 2-3, ABLE TO VERBALIZED NEEDS, DENIES ANY SYMPTOMS AT THIS TIME. ON 3L O2 VIA N/C SATURATING @ 94%, LUNG SOUNDS RHONCHI, PT PLACED ON BREATHING TREATMENT. ON TELE WITH SINUS RHYTHM, HR 88. WITH ON GOING IV INFUSION OF NS @ 100CC/HR, IV PATENT WITH NO S/S OF INFECTION. BS CHECKED, 394, NO S/S OF HYPERGLYCEMIA PT'S SLIDING SCALE HAS BEEN CHANGED TO AGGRESSIVE SCALE. PT IS COMFORTABLE, SCHEDULED AM MEDS TO BE GIVEN. CL WITHIN REACHED AND SAFETY MAINTAINED. ON GOING MONITORING.
[2019-04-17 08:00] VITALS: BP 163/87
[2019-04-17] MEDS: PIOGLITAZONE HCL 15 MG TABLET PO SCH (08:13)
[2019-04-17] MEDS: MULTIVIT W/MINERALS 1 TAB TABLET PO SCH (08:13)
[2019-04-17] MEDS: DOCUSATE SODIUM 100 MG CAPSULE PO SCH ×2 (08:13→20:22)
[2019-04-17] MEDS: QUETIAPINE FUMARATE 100 MG TABLET PO SCH ×2 (08:13→20:22)
[2019-04-17] MEDS: ESCITALOPRAM OXALATE (10 MG) 10 MG TABLET PO SCH (08:13)
[2019-04-17] MEDS: ASCORBIC ACID 500 MG TABLET PO SCH (08:13)
[2019-04-17] MEDS: LACTOBACILLUS RHAMNOSUS GG 1 EACH CAP.SPRINK PO SCH (08:13)
[2019-04-17] MEDS: methylPREDNISolone SOD SUCC 40 MG/ML VIAL IV SCH ×3 (08:13→16:44)
[2019-04-17] MEDS: ASPIRIN 81 MG TAB.CHEW PO SCH (08:13)
[2019-04-17] MEDS: FAMOTIDINE (20 MG) 20 MG TABLET PO SCH (08:14)
[2019-04-17] MEDS: INSULIN REGULAR, HUMAN 100 UNIT/ML 3 ML VIAL SQ PRN ×3 (08:16→17:03)
[2019-04-17] MEDS ORDERED: LEVOFLOXACIN 250 MG /D5W 50 ML 250 MG in PREMIX 1 EA IV SCH (10:00)
--- NOTE | 2019-04-17 10:00 | NUR ---
TELE1/RN ROUNDS - NAEEM RASHEED PT SEEN & EXAMINED BY NAEEM RASHEED, NO NEW ORDERS RECEIVED AT THIS TIME. MONITORING CONTINUED.
[2019-04-17 10:13] LABS: APPEARANCE,URINE CLOUDY (CLEAR); BILIRUBIN,URINE NEGATIVE (NEGATIVE); BLOOD, URINE 2+ Ery/uL (NEGATIVE); COLOR,URINE YELLOW (YELLOW); KETONES,URINE NEGATIVE (NEGATIVE); LEUKOCYTE ESTERASE ,URINE NEGATIVE (NEGATIVE); NITRITE, URINE NEGATIVE (NEGATIVE); PH,URINE 5.5 (5.0-8.0); PROTEIN,URINE NEGATIVE (NEGATIVE); UGLUCOSE 3+ mg/dL (NEGATIVE); UROBILINOGEN,URINE 0.2 EU/dL (0.2)
[2019-04-17 10:14] LABS: CREATININE, URINE 56.5 MG/DL (30.0-125.0); URINE TOTAL PROTEIN 18.8 mg/dL (0-11.9)
[2019-04-17 11:05] LABS: BACTERIA,URINE Few /HPF (None Seen); SQUAMOUS EPITHELIAL CELL,UR Rare /HPF (None Seen); WBC,URINE 0-2 /HPF (0-3); YEAST,URINE Moderate /HPF (None Seen)
[2019-04-17 11:07] LABS: URIC ACID CRYSTALS,URINE Moderate /HPF (None Seen)
[2019-04-17 12:00] VITALS: BP 150/70
--- NOTE | 2019-04-17 12:00 | NUR ---
TELE1/RN NOON ROUNDS NO CHANGE OF CONDITION. MONITORING CONTINUED.
[2019-04-17] MEDS: IV NS 0.9% 1,000 ML IV PRN (12:05)
[2019-04-17 13:29] LABS: EOSINOPHIL,URINE None Seen
[2019-04-17 16:00] VITALS: BP_SYST 116; BP_SYST 177; BP_DIAS 66; BP_DIAS 76
--- NOTE | 2019-04-17 19:00 | NUR ---
JUVENILE DETENTION OFFICER OPENING NOTES RECEIVED PATIENT IN BED, A/O X 2-3, ABLE TO MAKE NEEDS KNOWN, DENIES ANY SYMPTOMS AT THIS TIME. FAMILY AT BEDSIDE. ON 3L O2 VIA N/C SATURATING @ 95%, LUNG SOUNDS RHONCHI. ON TELE MONITOR SINUS RHYTHM WITH HR 84. WITH ON GOING IV INFUSION OF NS @ 100ML/HR, IV SITE ROBERT MIDLINE, PATENT WITH NO S/S OF INFECTION, SITE C/D/I. PT IS COMFORTABLE. CALL LIGHT WITHIN REACH AND SAFETY MAINTAINED. BED LOCKED AND IN LOWEST POSITION. WILL CONTINUE TO MONITOR PATIENT CLOSELY. Addendum: 04/17/19 at 2115 by CARLEEN REESE RN DAVENPORT CATHETER NOTED, DRAINING YELLOW URINE.
--- NOTE | 2019-04-17 19:04 | NUR ---
TELE1/RN AM SHIFT END NOTES NO ACUTE CHANGE OF CONDITION NOTED DURING THE SHIFT. ALL NEEDS MET. MID-LINE INTACT WITH ON GOING IV INFUSION OF NS @ 100CC/HR AND DAVENPORT CATHETER INTACT. PT ENDORSED TO PM NURSE TO CONTINUE CARE. CL WITHIN REACHED AND SAFETY MAINTAINED.
[2019-04-17 20:00] VITALS: BP 125/64
[2019-04-17] MEDS: ATORVASTATIN 10 MG TABLET PO SCH (22:25)
[2019-04-17] MEDS: DONEPEZIL 5 MG TABLET PO SCH (22:25)
[2019-04-17] MEDS: INSULIN GLARGINE, 100 UNIT/ML CARTRIDGE SQ SCH (22:27)
[2019-04-18] VITALS: BP 151/70
[2019-04-18] MEDS: IV NS 0.9% 1,000 ML IV PRN ×2 (01:56→13:01)
[2019-04-18 04:00] VITALS: BP 159/84
[2019-04-18] MEDS: PREGABALIN 25 MG CAPSULE PO SCH ×4 (05:00→20:24)
[2019-04-18] MEDS: HEPARIN SODIUM, PORCINE 5000 UNITS/1 ML VIAL SQ SCH ×4 (05:00→20:26)
[2019-04-18] MEDS: PIPERACILLIN /TAZOBACTAM 2.25 G in IV D5W 50 ML IV SCH (05:10)
--- NOTE | 2019-04-18 07:00 | NUR ---
LINTER OPERATOR CLOSING NOTES PATIENT SLEEPING IN BED, BUT EASY TO AROUSE. A/O X 2-3, ABLE TO MAKE NEEDS KNOWN, DENIES ANY SYMPTOMS AT THIS TIME. ON 3L O2 VIA N/C SATURATING @ 95%, LUNG SOUNDS RHONCHI. ON TELE MONITOR SINUS RHYTHM WITH HR 80S. WITH ON GOING IV INFUSION OF NS @ 100ML/HR, IV SITE ROBERT MIDLINE, PATENT WITH NO S/S OF INFECTION, SITE C/D/I. PT IS COMFORTABLE. CALL LIGHT WITHIN REACH AND SAFETY MAINTAINED. BED LOCKED AND IN LOWEST POSITION. ALL MD ORDERS ATTENDED. ALL NEEDS ANTICIPATED AND MET. WILL ENDORSE TO AM RN FOR REX.
[2019-04-18] MEDS: BLOOD SUGAR DIAGNOSTIC 1 EACH STRIP IN SCH ×4 (07:30→21:57)
[2019-04-18] MEDS: ALBUTEROL FS 2.5 MG/0.5 ML VIAL.NEB NEB SCH ×4 (07:58→19:30)
[2019-04-18] MEDS: IPRATROPIUM NEB FS 0.5 MG/2.5 ML AMPUL.NEB NEB SCH ×4 (07:58→19:30)
[2019-04-18 08:00] VITALS: BP 153/63
--- NOTE | 2019-04-18 08:00 | NUR ---
TELE1/RN AM SHIFT INITIAL NOTES RECEIVED PT AWAKE IN BED, PT A/O X 2-3, ABLE TO VERBALIZED NEEDS, DENIES ANY SYMPTOMS AT THIS TIME. NO ACUTE CHANGE OF CONDITION NOTED. ON 2L O2 VIA N/C SATURATING @ 96%, LUNG SOUNDS RHONCHI. RESPIRATIONS EVEN AND UNLABORED. ON TELE WITH SINUS RHYTHM, HR 84. WITH ON GOING IV INFUSION OF NS @ 100CC/HR, MID-LINE, PATENT WITH NO S/S OF INFECTION. BS CHECKED, 322, NO S/S OF HYPERGLYCEMIA. PT IS COMFORTABLE, SCHEDULED AM MEDS TO BE GIVEN. CL WITHIN REACHED AND SAFETY MAINTAINED. ON GOING MONITORING. Addendum: 04/18/19 at 1339 by MELA JERNIGAN RN ADDENDUM: DAVENPORT CATHETER INTACT WITH YELLOW URINE OUTPUT.
[2019-04-18] MEDS: INSULIN REGULAR, HUMAN 100 UNIT/ML 3 ML VIAL SQ PRN ×3 (08:35→17:10)
[2019-04-18] MEDS: methylPREDNISolone SOD SUCC 40 MG/ML VIAL IV SCH ×3 (08:36→17:08)
[2019-04-18] MEDS: ESCITALOPRAM OXALATE (10 MG) 10 MG TABLET PO SCH (08:38)
[2019-04-18] MEDS: LACTOBACILLUS RHAMNOSUS GG 1 EACH CAP.SPRINK PO SCH (08:38)
[2019-04-18 08:39] LABS: HEMATOCRIT 34 % (39-51); HEMOGLOBIN 11.2 g/dL (13.5-17.5); LYMPHOCYTES # (AUTO) 0.6 /CMM (0.8-4.8); LYMPHOCYTES % (AUTO) 10.3 % (20.0-44.0); MEAN CORPUSCULAR HGB CONC 33 g/dl (31.0-36.0); MEAN CORPUSCULAR VOLUME 81 fL (80-96); MONOCYTES # (AUTO) 0.8 /CMM (0.1-1.30); MONOCYTES % (AUTO) 13.3 % (2.0-12.0); NEUTROPHILS # (AUTO) 4.7 /CMM (1.8-8.9); NEUTROPHILS % (AUTO) 76.4 % (43.0-81.0); PLATELET COUNT (AUTO) 207 /CMM (150-450); RED BLOOD CELL COUNT(AUTO) 4.24 MIL/uL (4.5-6.0); WHITE BLOOD COUNT (AUTO) 6.1 K/uL (4.3-11.0)
[2019-04-18] MEDS: DOCUSATE SODIUM 100 MG CAPSULE PO SCH ×2 (08:39→20:24)
[2019-04-18] MEDS: FAMOTIDINE (20 MG) 20 MG TABLET PO SCH (08:39)
[2019-04-18] MEDS: ASPIRIN 81 MG TAB.CHEW PO SCH (08:39)
[2019-04-18] MEDS: PIOGLITAZONE HCL 15 MG TABLET PO SCH (08:39)
[2019-04-18] MEDS: MULTIVIT W/MINERALS 1 TAB TABLET PO SCH (08:39)
[2019-04-18] MEDS: ASCORBIC ACID 500 MG TABLET PO SCH (08:39)
[2019-04-18] MEDS: QUETIAPINE FUMARATE 100 MG TABLET PO SCH ×2 (08:39→20:24)
--- NOTE | 2019-04-18 08:40 | NUR ---
TELE1/RN SWALLOW EVAL PT SEEN & EXAMINED BY SPEECH THERAPIST. RECOMMENDED MECHANICAL SOFT DIET. NOTED. WILL NOTIFY PRIMARY MD.
[2019-04-18 08:59] LABS: CALCIUM, SERUM 8.1 mg/dL (8.5-10.1); CARBON DIOXIDE 28 mmol/L (21-32); CHLORIDE 101 mmol/L (98-107); CREATININE 1.5 mg/dL (0.6-1.3); GLUCOSE 343 mg/dL (74-106); POTASSIUM 4.2 mmol/L (3.5-5.1); SODIUM SERUM 137 mmol/L (136-145); UREA NITROGEN, BLOOD 51 mg/dL (7-18)
--- NOTE | 2019-04-18 10:48 | NUR ---
TELE1/RN ROUNDS - FAMILY SUPPORT WORKER RASHEED UPDATED PT'S CONDITION, INCLUDING SPEECH THERAPIST RECOMMENDATION ON DIET, FAMILY SUPPORT WORKER AGREED, PT'S DIET CHANGED. NO NEW OTHER ORDERS RECEIVED. CONTINUED MONITORING.
[2019-04-18 12:00] VITALS: BP 137/68
--- NOTE | 2019-04-18 12:00 | NUR ---
TELE1/RN NOON ROUNDS NO CHANGE OF CONDITION. MONITORING CONTINUED.
[2019-04-18] MEDS ORDERED: MEROPENEM 500 MG in IV NS 0.9% 50 ML IV ONE (14:00)
[2019-04-18 16:00] VITALS: BP 165/71
--- NOTE | 2019-04-18 16:50 | NUR ---
TELE1/RN AFTERNOON ROUNDS PM CARE PROVIDED, NO CHANGE OF CONDITION. ON GOING MONITORING.
--- NOTE | 2019-04-18 19:11 | NUR ---
TELE1/RN AM SHIFT END NOTES PT STABLE IN CONDITION DURING THE SHIFT, MORE ALERT AND CONVERSANT. NO ACUTE CHANGE OF CONDITION. ALL NEEDS MET. MID-LINE INTACT WITH ON GOING IV INFUSION OF NS @ 100CC/HR AND DAVENPORT CATHETER INTACT. PT ENDORSED TO PM NURSE TO CONTINUE CARE. CL WITHIN REACHED AND SAFETY MAINTAINED.
[2019-04-18] MEDS ORDERED: DOSE PER PHARMACY MICAFUNGIN 1 EA XX PRN (19:30)
--- NOTE | 2019-04-18 19:43 | NUR ---
CORN HUSKER NOTES PATIENT IN BED A/OX 3. PATIENT DENIES ANY C/O PAIN OR DISCOMFORT AT THIS TIME. PATIENT DENIES SOB/ CHEST PAIN. PATIENT ON 2L NC SATURATIONS 96%. PATIENT BREATHING EVEN AND UNLABORED.. PATIENT SR ON THE MONITOR. SAFETY PRECAUTIONS IN PLACE. PATIENT HAS MIDLINE 100 ML/HR NO S/S OF INFECTIONS. RN WILL CONTINUE TO MONITOR. FOR CHANGES.
[2019-04-18 20:00] VITALS: BP_SYST 137; BP_SYST 167; BP_DIAS 78
[2019-04-18] MEDS ORDERED: MICAFUNGIN SODIUM 100 MG in IV NS 0.9% 100 ML IV ONE ×2 (20:00→23:00)
[2019-04-18] MEDS ORDERED: MEROPENEM 500 MG in IV NS 0.9% 100 ML IV SCH ×2 (20:00→22:00)
[2019-04-18] MEDS ORDERED: MICAFUNGIN SODIUM 100 MG VIAL IV ONE (20:25)
[2019-04-18] MEDS ORDERED: DOXYCYCLINE 100 MG VIAL ONE (20:25)
[2019-04-18] MEDS: DOXYCYCLINE 100 MG in IV NS 0.9% 100 ML IV SCH (20:34)
[2019-04-18] MEDS: MUPIROCIN OINT 2% 22 GM TUBE SCH (20:37)
[2019-04-18] MEDS: DONEPEZIL 5 MG TABLET PO SCH (21:57)
[2019-04-18] MEDS: ATORVASTATIN 10 MG TABLET PO SCH (21:58)
[2019-04-18] MEDS: INSULIN GLARGINE, 100 UNIT/ML CARTRIDGE SQ SCH (22:00)
[2019-04-18] MEDS: *INSULIN REGULAR(HUMULIN R)HUM 100 UNIT/ML VIAL SQ PRN (22:02)
[2019-04-19] VITALS: BP 139/55
[2019-04-19 04:00] VITALS: BP 157/78
[2019-04-19] MEDS: IV NS 0.9% 1,000 ML IV PRN (04:45)
[2019-04-19] MEDS: HEPARIN SODIUM, PORCINE 5000 UNITS/1 ML VIAL SQ SCH ×3 (04:46→21:00)
[2019-04-19] MEDS: PREGABALIN 25 MG CAPSULE PO SCH ×3 (04:46→20:58)
--- NOTE | 2019-04-19 06:45 | NUR ---
FORMING MACHINE UPKEEP MECHANIC NOTE NO ACUTE CHANGES THROUGHOUT THE NIGHT. ALL CARE RENDERED. NO S/S OF DISTRESS. WILL ENDORSE POC TO AM SHIFT FOR REX.
[2019-04-19] MEDS: IPRATROPIUM NEB FS 0.5 MG/2.5 ML AMPUL.NEB NEB SCH ×4 (07:09→19:51)
[2019-04-19] MEDS: ALBUTEROL FS 2.5 MG/0.5 ML VIAL.NEB NEB SCH ×4 (07:10→19:51)
[2019-04-19] MEDS: BLOOD SUGAR DIAGNOSTIC 1 EACH STRIP IN SCH ×4 (07:30→21:10)
[2019-04-19 08:00] VITALS: BP 156/83
[2019-04-19] MEDS ORDERED: MICAFUNGIN SODIUM 100 MG in IV NS 0.9% 100 ML IV SCH ×4 (09:00)
--- NOTE | 2019-04-19 10:55 | NUR ---
Patient refuses by mouth medication this morning. Was given steroid via IV without complication. Marquis Ramírez RN
--- NOTE | 2019-04-19 11:20 | NUR ---
Blood glucose 315 mg/dL. Sliding scale insulin coverage given. Marquis Ramírez RN Addendum: 04/19/19 at 1931 by MARQUIS GOMEZ RN 16 U regular Insulin witness Kisha Renteria RN
--- NOTE | 2019-04-19 11:55 | NUR ---
Patient refuses labwork per domestic technician. notified. Marquis Ramírez RN
[2019-04-19 12:00] VITALS: BP 155/77
--- NOTE | 2019-04-19 13:30 | NUR ---
Patient tolerated 100% of meal well. Took lyrica medication well. Marquis Ramírez Rn
[2019-04-19] MEDS: FAMOTIDINE (20 MG) 20 MG TABLET PO SCH (14:02)
[2019-04-19] MEDS: PIOGLITAZONE HCL 15 MG TABLET PO SCH (14:02)
[2019-04-19] MEDS: LACTOBACILLUS RHAMNOSUS GG 1 EACH CAP.SPRINK PO SCH (14:02)
[2019-04-19] MEDS: ASCORBIC ACID 500 MG TABLET PO SCH (14:02)
[2019-04-19] MEDS: ESCITALOPRAM OXALATE (10 MG) 10 MG TABLET PO SCH (14:02)
[2019-04-19] MEDS: MULTIVIT W/MINERALS 1 TAB TABLET PO SCH (14:03)
[2019-04-19] MEDS: methylPREDNISolone SOD SUCC 40 MG/ML VIAL IV SCH ×3 (14:03→18:00)
[2019-04-19] MEDS: DOCUSATE SODIUM 100 MG CAPSULE PO SCH ×2 (14:03→20:58)
[2019-04-19] MEDS: ASPIRIN 81 MG TAB.CHEW PO SCH (14:03)
[2019-04-19] MEDS: INSULIN REGULAR, HUMAN 100 UNIT/ML 3 ML VIAL SQ PRN ×2 (14:08→18:20)
[2019-04-19] MEDS: MEROPENEM 500 MG in IV NS 0.9% 50 ML IV SCH ×2 (14:10→21:13)
[2019-04-19] MEDS: DOXYCYCLINE 100 MG in IV NS 0.9% 100 ML IV SCH ×2 (14:11→20:57)
[2019-04-19] MEDS: QUETIAPINE FUMARATE 100 MG TABLET PO SCH ×2 (14:13→20:58)
[2019-04-19] MEDS: MUPIROCIN OINT 2% 22 GM TUBE SCH ×2 (14:13→20:58)
[2019-04-19 16:00] VITALS: BP 175/90
--- NOTE | 2019-04-19 19:40 | NUR ---
GOVERNMENT SERVICES PROFESSIONAL NOTES PATIENT IN BED ASLEEP UT EASILY AROUSABLE TO TACTILE STIMULI, A/OX 3. BREATHING EVEN AND UNLABORED, NO SOB/ACUTE DISTRESS NOTED, PATIENT DENIES PAIN OR DISCOMFORT, PATIENT ON 2L NC SATURATIONS 96%, SR IN TELE MONITOR HR IN THE 80S, SAFETY PRECAUTIONS IN PLACE, JITENDRA MIDLINE PATENT AND INTACT, INFUSING NS AT 100 ML/HR NO S/S OF INFILTRATION NOTED, 1/2 SR OF BED UP, CALL LIGHT W/I REACH, WILL CONTINUE TO MONITOR CLOSELY.
[2019-04-19 20:00] VITALS: BP_SYST 159; BP_SYST 173; BP_DIAS 80; BP_DIAS 83
[2019-04-19 20:35] LABS: HEMATOCRIT 34 % (39-51); HEMOGLOBIN 11.2 g/dL (13.5-17.5); LYMPHOCYTES % (AUTO) 8.2 % (20.0-44.0); MEAN CORPUSCULAR HGB CONC 33 g/dl (31.0-36.0); MEAN CORPUSCULAR VOLUME 82 fL (80-96); MONOCYTES % (AUTO) 8.6 % (2.0-12.0); NEUTROPHILS % (AUTO) 82.9 % (43.0-81.0); PLATELET COUNT (AUTO) 194 /CMM (150-450); RED BLOOD CELL COUNT(AUTO) 4.15 MIL/uL (4.5-6.0); WHITE BLOOD COUNT (AUTO) 7.3 K/uL (4.3-11.0)
[2019-04-19 20:36] LABS: BASOPHILS % (AUTO) 0.2 % (0.0-2.0); EOSINOPHILS % (AUTO) 0.1 % (0.0-6.0); LYMPHOCYTES # (AUTO) 0.6 /CMM (0.8-4.8); MONOCYTES # (AUTO) 0.6 /CMM (0.1-1.30); NEUTROPHILS # (AUTO) 6.1 /CMM (1.8-8.9)
[2019-04-19 21:02] LABS: CARBON DIOXIDE 30 mmol/L (21-32); CHLORIDE 101 mmol/L (98-107); POTASSIUM 4.3 mmol/L (3.5-5.1); SODIUM SERUM 137 mmol/L (136-145)
[2019-04-19 21:03] LABS: CALCIUM, SERUM 8.5 mg/dL (8.5-10.1); GLUCOSE 333 mg/dL (74-106); UREA NITROGEN, BLOOD 30 mg/dL (7-18)
[2019-04-19] MEDS: ATORVASTATIN 10 MG TABLET PO SCH (21:03)
[2019-04-19] MEDS: DONEPEZIL 5 MG TABLET PO SCH (21:03)
[2019-04-19] MEDS: *INSULIN REGULAR(HUMULIN R)HUM 100 UNIT/ML VIAL SQ PRN (21:12)
[2019-04-19] MEDS: INSULIN GLARGINE, 100 UNIT/ML CARTRIDGE SQ SCH (21:13)
[2019-04-19 21:48] LABS: LYMPHOCYTES % (MANUAL) 12 % (16-48); MONOCYTES % (MANUAL) 9 % (0-11.0); NEUTROPHILS % (MANUAL) 79 (42-76)
[2019-04-19] MEDS: hydrALAZINE HCL 25 MG TABLET PO PRN (22:20)
--- NOTE | 2019-04-19 22:30 | NUR ---
RN NOTES, NOTED PATIENT WITH BP 168/83, 86, ASYMPTOMATIC, DENIES PAIN OR DISCOMFORT, INFORMED MD HEADING MATCHER AND ASSEMBLER AND RECEIVED A NEW ORDER FOR HYDRALAZINE 25MG Q8HRS PRN FOR SBP >160, NOTED AND CARRIED OUT, WILL CONTINUE TO MONITOR CLOSELY.
[2019-04-19] MEDS: MICAFUNGIN SODIUM 100 MG in IV NS 0.9% 100 ML IV SCH (23:38)
[2019-04-20] VITALS: BP_SYST 160; BP_SYST 171; BP_DIAS 88
[2019-04-20] MEDS ORDERED: hydrALAZINE HCL 25 MG TABLET PO ONE (00:30)
--- NOTE | 2019-04-20 00:40 | NUR ---
RN NOTES, HYDRALAZINE 25MG PO INEFFECTIVE, PATIENT NOTED STILL WITH BP FIRST READING 171/88 SECOND READING 160/88, INFORMED DR MASTER DYER JEROD Aguilar, AND RECEIVED A NEW ORDER FOR ONE EXTRA DOSE OF HYDRALAZINE 25MG PO X1 ONLY, NOTED AND CARRIED OUT, PATIENT A/O ASYMPTOMATIC, WILL CONTINUE TO MONITOR CLOSELY.
[2019-04-20 01:48] LABS: *SPE ALBUMIN 2.6 g/dL (2.9-4.4); *SPE ALPHA-1-GLOBULIN 0.3 g/dL (0.0-0.4); *SPE BETA GLOBULIN 0.8 g/dL (0.7-1.3); *SPE GLOBULIN, TOTAL 2.6 g/dL (2.2-3.9); *SPE M-SPIKE Not Observed g/dL (Not Observed); *SPEGAMMA GLOBULIN 0.5 g/dL (0.4-1.8)
--- NOTE | 2019-04-20 02:40 | NUR ---
RN NOTES, UPON REASSESSMENT OF BLOOD PRESSURE, BP NOTED 158/81, 89, WILL CONTINUE OT MONITOR CLOSELY.
[2019-04-20 04:00] VITALS: BP 157/84
[2019-04-20] MEDS: IV NS 0.9% 1,000 ML IV PRN (04:06)
[2019-04-20] MEDS: PREGABALIN 25 MG CAPSULE PO SCH ×3 (04:11→21:48)
[2019-04-20] MEDS: HEPARIN SODIUM, PORCINE 5000 UNITS/1 ML VIAL SQ SCH ×3 (04:13→21:48)
--- NOTE | 2019-04-20 06:26 | NUR ---
SCIENTIST ENGINEER NOTES PATIENT IN BED ASLEEP UT EASILY AROUSABLE TO TACTILE STIMULI, A/OX 3. BREATHING EVEN AND UNLABORED, NO SOB/ACUTE DISTRESS NOTED, PATIENT DENIES PAIN OR DISCOMFORT, PATIENT ON 2L NC SATURATIONS 96%, SR IN TELE MONITOR HR IN THE 80S-100S THROUGHOUT THE NIGHT, WITH EPISODES OF HIGH BLOOD PRESSURE, MEDS GIVEN ORDERED, , SAFETY PRECAUTIONS IN PLACE, JITENDRA MIDLINE PATENT AND INTACT, INFUSING NS AT 100 ML/HR NO S/S OF INFILTRATION NOTED, 1/2 SR OF BED UP, CALL LIGHT W/I REACH, WILL ENDORSE CONTINUITY OF CARE TO ONCOMING NURSE.
--- NOTE | 2019-04-20 07:00 | NUR ---
RN AM SHIFT NOTE PATIENT IN BED, ALERT ORIENTED 2-3. IV PATENT INTACT, SIDE RAILS UP CALL LIGHT WITHIN REACH.
[2019-04-20] MEDS: BLOOD SUGAR DIAGNOSTIC 1 EACH STRIP IN SCH ×4 (07:30→22:59)
[2019-04-20] MEDS: ALBUTEROL FS 2.5 MG/0.5 ML VIAL.NEB NEB SCH ×4 (07:40→20:05)
[2019-04-20] MEDS: IPRATROPIUM NEB FS 0.5 MG/2.5 ML AMPUL.NEB NEB SCH ×4 (07:40→20:05)
[2019-04-20 08:00] VITALS: BP 120/75
[2019-04-20] MEDS: LACTOBACILLUS RHAMNOSUS GG 1 EACH CAP.SPRINK PO SCH (08:42)
[2019-04-20] MEDS: FAMOTIDINE (20 MG) 20 MG TABLET PO SCH (08:42)
[2019-04-20] MEDS: QUETIAPINE FUMARATE 100 MG TABLET PO SCH ×2 (08:42→21:32)
[2019-04-20] MEDS: ESCITALOPRAM OXALATE (10 MG) 10 MG TABLET PO SCH (08:42)
[2019-04-20] MEDS: MULTIVIT W/MINERALS 1 TAB TABLET PO SCH (08:43)
[2019-04-20] MEDS: PIOGLITAZONE HCL 15 MG TABLET PO SCH (08:43)
[2019-04-20] MEDS: methylPREDNISolone SOD SUCC 40 MG/ML VIAL IV SCH ×3 (08:43→17:18)
[2019-04-20] MEDS: ASPIRIN 81 MG TAB.CHEW PO SCH (08:43)
[2019-04-20] MEDS: DOCUSATE SODIUM 100 MG CAPSULE PO SCH ×2 (08:43→21:33)
[2019-04-20] MEDS: ASCORBIC ACID 500 MG TABLET PO SCH (08:43)
[2019-04-20] MEDS: MUPIROCIN OINT 2% 22 GM TUBE SCH ×2 (08:48→21:33)
[2019-04-20] MEDS: DOXYCYCLINE 100 MG in IV NS 0.9% 100 ML IV SCH ×2 (08:48→20:00)
[2019-04-20] MEDS: MEROPENEM 500 MG in IV NS 0.9% 50 ML IV SCH ×2 (10:24→22:10)
[2019-04-20 12:00] VITALS: BP 126/68
[2019-04-20 13:07] LABS: PTH, INTACT 84 pg/mL (15-65)
[2019-04-20 16:00] VITALS: BP 146/80
[2019-04-20] MEDS: *INSULIN REGULAR(HUMULIN R)HUM 100 UNIT/ML VIAL SQ PRN (17:54)
[2019-04-20 18:01] LABS: ABG BASE EXCESS 5.1 mmol/L; ABG OXYGEN SATURATION 95.1 % (92.0-98.5); ABG PCO2 43.9 mmHg (35.0-45.0); ABG PH 7.449 (7.350-7.450); ABG PO2 79.2 mmHg (75.0-100.0); AaDO2 68.6 mmHg; COHb 0.4 % (0.5-1.5); MetHb 0.4 % (0.0-1.5); O2Hb 94.3 % (94.0-97.0); SITE, ABG Right Radial; VENT MODE, BG Nasal Cannula
--- NOTE | 2019-04-20 18:59 | NUR ---
RN CLOSING NOTES PATIETN IN BED, ALERT 2-3. NO S/S OF DISTRESS. BLOOD SUGAR SLIGHTLY ELEVATED, CONTROLED WITH CURRENT MD ORDER. KEPT CLEAN AND DRY, IV PATENT AND INTACT. FLUID RUNNING PER MD ORDER, RN ASSESS FOR FLUID VOLUME OVERLOAD NO S/S PRESENT AT THIS TIME. LUNG SOUNDS CLEAR. EATING WELL TOLERATING MEDICATION AND REHYDRATION WELL. SAFETY MEASURES IN PLACE.
--- NOTE | 2019-04-20 19:43 | NUR ---
RN OPENING TELE NOTES: PATIENT IN BED ASLEEP UT, A/OX 3. NO SOB/ACUTE DISTRESS NOTED, PATIENT DENIES PAIN OR DISCOMFORT, PATIENT ON 2L NC SATURATIONS 96%, SR IN TELE MONITOR HR IN THE 80S, SAFETY PRECAUTIONS IN PLACE, JITENRDA MIDLINE PATENT AND INTACT, INFUSING NS AT 100 ML/HR BED UP, CALL LIGHT W/I REACH, WILL CONTINUE TO MONITOR CLOSELY.
[2019-04-20] MEDS: hydrALAZINE HCL 25 MG TABLET PO PRN (19:59)
[2019-04-20 20:00] VITALS: BP 181/94
[2019-04-20] MEDS: ATORVASTATIN 10 MG TABLET PO SCH (22:10)
[2019-04-20] MEDS: DONEPEZIL 5 MG TABLET PO SCH (22:10)
[2019-04-20] MEDS: INSULIN GLARGINE, 100 UNIT/ML CARTRIDGE SQ SCH (22:22)
[2019-04-20] MEDS: INSULIN REGULAR, HUMAN 100 UNIT/ML 3 ML VIAL SQ PRN (22:25)
[2019-04-20] MEDS: MICAFUNGIN SODIUM 100 MG in IV NS 0.9% 100 ML IV SCH (23:12)
[2019-04-21] VITALS: BP 156/65
[2019-04-21 04:00] VITALS: BP 164/75
[2019-04-21] MEDS: IV NS 0.9% 1,000 ML IV PRN ×2 (04:04→16:11)
[2019-04-21] MEDS: PREGABALIN 25 MG CAPSULE PO SCH ×3 (04:26→21:20)
[2019-04-21] MEDS: hydrALAZINE HCL 25 MG TABLET PO PRN (04:28)
[2019-04-21] MEDS: HEPARIN SODIUM, PORCINE 5000 UNITS/1 ML VIAL SQ SCH ×3 (04:29→21:39)
--- NOTE | 2019-04-21 06:49 | NUR ---
PATIENT IN BED ASLEEP.NO SOB/ACUTE DISTRESS NOTED, PATIENT , PATIENT ON 2L NC SATURATIONS 96%, SR IN TELE MONITOR HR IN THE 80S, SAFETY PRECAUTIONS IN PLACE, JITENDRA MIDLINE PATENT AND INTACT, INFUSING NS AT 100 ML/HR BED UP, CALL LIGHT W/I REACH, WILL ENDORSE TO AM SHIFT TO CONTINUE PLAN OF CARE.
[2019-04-21] MEDS: ALBUTEROL FS 2.5 MG/0.5 ML VIAL.NEB NEB SCH ×4 (07:12→19:46)
[2019-04-21] MEDS: IPRATROPIUM NEB FS 0.5 MG/2.5 ML AMPUL.NEB NEB SCH ×4 (07:12→19:46)
[2019-04-21 07:14] LABS: BASOPHILS % (AUTO) 0.2 % (0.0-2.0); EOSINOPHILS % (AUTO) 0.1 % (0.0-6.0); HEMATOCRIT 34 % (39-51); HEMOGLOBIN 11.3 g/dL (13.5-17.5); LYMPHOCYTES # (AUTO) 0.9 /CMM (0.8-4.8); LYMPHOCYTES % (AUTO) 11.8 % (20.0-44.0); MEAN CORPUSCULAR HGB CONC 33 g/dl (31.0-36.0); MEAN CORPUSCULAR VOLUME 82 fL (80-96); MONOCYTES # (AUTO) 0.8 /CMM (0.1-1.30); MONOCYTES % (AUTO) 10.1 % (2.0-12.0); NEUTROPHILS # (AUTO) 5.8 /CMM (1.8-8.9); NEUTROPHILS % (AUTO) 77.8 % (43.0-81.0); PLATELET COUNT (AUTO) 145 /CMM (150-450); RED BLOOD CELL COUNT(AUTO) 4.16 MIL/uL (4.5-6.0); WHITE BLOOD COUNT (AUTO) 7.5 K/uL (4.3-11.0)
--- NOTE | 2019-04-21 07:15 | NUR ---
RECEIVED PATIENT DROWSY BUT AROUSABLE TO NAME/TOUCH. A/OX2. NO ACUTE DISTRESS OR SOB NOTED. 2LPM 02 VIA NC, TOLERATING WELL. TELE MONITOR ATTACHED, SINUS RHYTHM HR 60. F/C DRAINING YELLOW URINE WITH SEDIMENT. R MIDLINE SITE C/D/I, NS RUNNING @100mL/HR. NO S/S HYPOGLYCEMIA NOTED. BED LOCKED, LOW, SIDE RAILS UPX2, BED ALARM ON, CALL LIGHT WITHIN REACH. WILL CONTINUE TO MONITOR
[2019-04-21 07:17] LABS: CALCIUM, SERUM 7.4 mg/dL (8.5-10.1); CARBON DIOXIDE 30 mmol/L (21-32); CHLORIDE 105 mmol/L (98-107); CREATININE 0.8 mg/dL (0.6-1.3); GLUCOSE 226 mg/dL (74-106); MAGNESIUM 1.8 mg/dL (1.8-2.4); POTASSIUM 4.5 mmol/L (3.5-5.1); SODIUM SERUM 139 mmol/L (136-145); UREA NITROGEN, BLOOD 25 mg/dL (7-18)
[2019-04-21] MEDS: BLOOD SUGAR DIAGNOSTIC 1 EACH STRIP IN SCH ×4 (07:51→21:25)
[2019-04-21 08:00] VITALS: BP_SYST 140; BP_SYST 157; BP_DIAS 65; BP_DIAS 77
[2019-04-21] MEDS: INSULIN REGULAR, HUMAN 100 UNIT/ML 3 ML VIAL SQ PRN ×3 (08:09→17:46)
--- NOTE | 2019-04-21 09:02 | NUR ---
VERBALIZED CONCERN ABOUT DROPPING PLATELETS, PER ELAINE FROM PHARMACY, HEPARIN OK TO GIVE
[2019-04-21] MEDS: FAMOTIDINE (20 MG) 20 MG TABLET PO SCH (09:03)
[2019-04-21] MEDS: ASPIRIN 81 MG TAB.CHEW PO SCH (09:04)
[2019-04-21] MEDS: LACTOBACILLUS RHAMNOSUS GG 1 EACH CAP.SPRINK PO SCH (09:04)
[2019-04-21] MEDS: ASCORBIC ACID 500 MG TABLET PO SCH (09:04)
[2019-04-21] MEDS: ESCITALOPRAM OXALATE (10 MG) 10 MG TABLET PO SCH (09:04)
[2019-04-21] MEDS: methylPREDNISolone SOD SUCC 40 MG/ML VIAL IV SCH ×3 (09:04→17:27)
[2019-04-21] MEDS: DOCUSATE SODIUM 100 MG CAPSULE PO SCH ×2 (09:04→21:20)
[2019-04-21] MEDS: DOXYCYCLINE 100 MG in IV NS 0.9% 100 ML IV SCH (09:11)
[2019-04-21] MEDS: MULTIVIT W/MINERALS 1 TAB TABLET PO SCH (09:12)
[2019-04-21] MEDS: QUETIAPINE FUMARATE 100 MG TABLET PO SCH ×2 (09:12→21:24)
[2019-04-21] MEDS: MUPIROCIN OINT 2% 22 GM TUBE SCH ×2 (09:12→21:37)
[2019-04-21] MEDS: PIOGLITAZONE HCL 15 MG TABLET PO SCH (09:13)
[2019-04-21] MEDS: MEROPENEM 500 MG in IV NS 0.9% 50 ML IV SCH ×2 (10:45→21:29)
[2019-04-21 12:00] VITALS: BP 133/80
[2019-04-21 16:00] VITALS: BP 130/72
--- NOTE | 2019-04-21 18:00 | NUR ---
DIE TESTER CLOSING NO SIGNIFICANT CHANGES THROUGHOUT SHIFT. PATIENT A/OX2. ON 2LPM O2 VIA NC, SPO2 96%. NO ACUTE DISTRESS OR SOB NOTED. TELE MONITOR ATTACHED. DAVENPORT DRAINING. ASPIRATION PRECAUTIONS MAINTAINED AT ALL TIMES. R UA MIDLINE INTACT. ALL ORDERED MEDS GIVEN. SAFETY PRECAUTIONS IN PLACE. WILL ENDORSE TO NOC FOR REX
--- NOTE | 2019-04-21 19:30 | NUR ---
TELE VENDETTE INITIAL NOTES RECEIVED REPORT FROM AM NURSE AND SEEN PT IN BED ON SITTING POSITION , RESTING WHILE WATCHING TV. DENIES ANY PAIN OR ANY DISCOMFORT. NO SOB NOTED ON O2 AT 2 LITERS VIA NASAL CANULA. HE ALSO WITH DAVENPORT TO GRAVITY WITH YELLOW OUTPUT NOTED AT THIS TIME. IVF INFUSING AT THIS TIME SOILA HIS RIGHT UPPER ARM MIDLINE. NO REDNESS NOTED. TELE SINUS RHYTHM HEART RATE 89 PER MONITOR . ON ISOLATION MRSA NARES. ISOLATION PRECAUTION IMPLEMENTED AND OBSERVED,. PLACE CALL LIGHT AT REACH. WILL CONTINUE MONITORING.
[2019-04-21 20:00] VITALS: BP 145/96
[2019-04-21] MEDS: DOXYCYCLINE HYCLATE (100 MG) 100 MG TABLET PO SCH (21:21)
[2019-04-21] MEDS: ATORVASTATIN 10 MG TABLET PO SCH (21:47)
[2019-04-21] MEDS: DONEPEZIL 5 MG TABLET PO SCH (21:47)
--- NOTE | 2019-04-21 21:58 | NUR ---
TELE FLOOR COVERING INSTALLER NOTES' BLOOD SUGAR CHECKED DONE 310, 55 UNITS OF LANTUS GIVNE SOILA SQ ORDERED. WELL 8 UNITS OF REGAULR INSULIN. SNACKS ALSO SERVED. NO SIGNS OF HYPER GLYCEMIA NOTED. WILL CONTINUE MONITORING. PLACE CALL LIGHT AT REACH.
[2019-04-21] MEDS: INSULIN GLARGINE, 100 UNIT/ML CARTRIDGE SQ SCH (21:59)
[2019-04-21] MEDS: *INSULIN REGULAR(HUMULIN R)HUM 100 UNIT/ML VIAL SQ PRN (22:00)
[2019-04-21] MEDS: MICAFUNGIN SODIUM 100 MG in IV NS 0.9% 100 ML IV SCH (22:55)
--- NOTE | 2019-04-22 | NUR ---
tele marina porter notes pt sleeping comfortably in bed without any acute distress noted. ivf still infusing. kept him warm and comfortbale a all times. will continue mnonitoring.place call light at reach.
[2019-04-22 00:13] VITALS: BP 148/87
[2019-04-22] MEDS: IV NS 0.9% 1,000 ML IV PRN ×2 (03:42→14:54)
[2019-04-22 04:00] VITALS: BP 143/68
[2019-04-22] MEDS: PREGABALIN 25 MG CAPSULE PO SCH ×2 (05:18→12:53)
[2019-04-22] MEDS: HEPARIN SODIUM, PORCINE 5000 UNITS/1 ML VIAL SQ SCH ×2 (05:21→12:54)
[2019-04-22] MEDS: BLOOD SUGAR DIAGNOSTIC 1 EACH STRIP IN SCH ×2 (05:52→12:48)
[2019-04-22] MEDS: INSULIN REGULAR, HUMAN 100 UNIT/ML 3 ML VIAL SQ PRN ×3 (05:54→12:53)
[2019-04-22 07:03] LABS: BASOPHILS % (AUTO) 0.1 % (0.0-2.0); EOSINOPHILS % (AUTO) 0.1 % (0.0-6.0); HEMATOCRIT 33 % (39-51); HEMOGLOBIN 11.1 g/dL (13.5-17.5); LYMPHOCYTES # (AUTO) 0.9 /CMM (0.8-4.8); LYMPHOCYTES % (AUTO) 10.4 % (20.0-44.0); MEAN CORPUSCULAR HGB CONC 33 g/dl (31.0-36.0); MEAN CORPUSCULAR VOLUME 82 fL (80-96); MONOCYTES # (AUTO) 0.7 /CMM (0.1-1.30); MONOCYTES % (AUTO) 8.5 % (2.0-12.0); NEUTROPHILS # (AUTO) 7.1 /CMM (1.8-8.9); NEUTROPHILS % (AUTO) 80.9 % (43.0-81.0); PLATELET COUNT (AUTO) 153 /CMM (150-450); RED BLOOD CELL COUNT(AUTO) 4.06 MIL/uL (4.5-6.0); WHITE BLOOD COUNT (AUTO) 8.8 K/uL (4.3-11.0)
--- NOTE | 2019-04-22 07:04 | NUR ---
TELE WAREHOUSE PROCESSOR CLOSING NOTES PT BAKC TO SLEEP AFTER MORNING CARE DONE. BLOOD SUGAR CHECKED 284, 12 UNITS OF INSULIN GIVEN SOILA SQ ORDERED. PT STILL WITH IVF NS AT 100 ML/HR INFUSING WELL. NO SIGNS OF HYPER GLYCEMIA NOTED. STABLE SOILA THE NIGHT AND SLEPT WELL. NO SIGNS OF ANY ACUTE DISTRESS NOTED. TELE SINUS RHYTHM WITH PAC PER MONITOR. ALL DUE MEDS GIVEN AND ALL NEEDS MET. DAVENPORT DRAINING WELL WITH YELLOW OUTPUT NOTED. STILL ON ISOLATION PRECAUTION IMPLEMENTED AND OBSERVED. KEPT HIM ON SEMI FOWLERS POSITION WITH SIDE RAILS X2 UP. BED IN LOW AND LOCK IN POSITION. PLACE CALL LIGHT AT REACH. WILL ENDORSE TO AM NURSE FOR CONTINUITY OF CARE.
[2019-04-22 07:12] LABS: CALCIUM, SERUM 7.4 mg/dL (8.5-10.1); CARBON DIOXIDE 28 mmol/L (21-32); CHLORIDE 105 mmol/L (98-107); GLUCOSE 328 mg/dL (74-106); POTASSIUM 4.2 mmol/L (3.5-5.1); SODIUM SERUM 139 mmol/L (136-145); UREA NITROGEN, BLOOD 27 mg/dL (7-18)
--- NOTE | 2019-04-22 07:20 | NUR ---
INGOT HEADER OPENING NOTE RECEIVED PATIENT A/OX2, NO ACUTE DISTRESS OR SOB NOTED. 2LMP O2 VIA NC, TOLERATING WELL. TELE MONITOR ATTACHED, SINUS RHYTHM HR 84 WITH OCCASIONAL PACS. DAVENPORT CATHETER DRAINING YELLOW URINE WITH SEDIMENT. R UA MIDLINE C/D/I, RUNNING NS @100mL/HR. NO S/S HYPOGLYCEMIA AND ASPIRATION NOTED. BED LOCKED, LOW, SIDE RAILS UPX2, BED ALARM ON, CALL LIGHT WITHIN REACH. WILL CONTINUE TO MONITOR
[2019-04-22] MEDS: IPRATROPIUM NEB FS 0.5 MG/2.5 ML AMPUL.NEB NEB SCH ×3 (07:57→15:42)
[2019-04-22] MEDS: ALBUTEROL FS 2.5 MG/0.5 ML VIAL.NEB NEB SCH ×3 (07:57→15:42)
[2019-04-22 08:00] VITALS: BP 175/90
[2019-04-22] MEDS: ESCITALOPRAM OXALATE (10 MG) 10 MG TABLET PO SCH (08:06)
[2019-04-22] MEDS: MULTIVIT W/MINERALS 1 TAB TABLET PO SCH (08:06)
[2019-04-22] MEDS: PIOGLITAZONE HCL 15 MG TABLET PO SCH (08:06)
[2019-04-22] MEDS: DOXYCYCLINE HYCLATE (100 MG) 100 MG TABLET PO SCH (08:06)
[2019-04-22] MEDS: methylPREDNISolone SOD SUCC 40 MG/ML VIAL IV SCH ×2 (08:06→12:53)
[2019-04-22] MEDS: DOCUSATE SODIUM 100 MG CAPSULE PO SCH (08:07)
[2019-04-22] MEDS: FAMOTIDINE (20 MG) 20 MG TABLET PO SCH (08:07)
[2019-04-22] MEDS: LACTOBACILLUS RHAMNOSUS GG 1 EACH CAP.SPRINK PO SCH (08:07)
[2019-04-22] MEDS: hydrALAZINE HCL 25 MG TABLET PO PRN (08:07)
[2019-04-22] MEDS: ASCORBIC ACID 500 MG TABLET PO SCH (08:07)
[2019-04-22] MEDS: QUETIAPINE FUMARATE 100 MG TABLET PO SCH (08:07)
[2019-04-22] MEDS: ASPIRIN 81 MG TAB.CHEW PO SCH (08:07)
[2019-04-22] MEDS: MUPIROCIN OINT 2% 22 GM TUBE SCH (08:08)
[2019-04-22 08:47] LABS: NEUTROPHILS % (MANUAL) 74 (42-76)
[2019-04-22 08:48] LABS: LYMPHOCYTES % (MANUAL) 16 % (16-48); MONOCYTES % (MANUAL) 10 % (0-11.0)
[2019-04-22] MEDS: MEROPENEM 500 MG in IV NS 0.9% 50 ML IV SCH (10:00)
[2019-04-22 12:00] VITALS: BP 132/65
--- NOTE | 2019-04-22 17:00 | NUR ---
RN D/C NOTE AMBULANCE PERSONNEL AT BEDSIDE. REPORT GIVEN TO RUMA VASQUEZ AT [facility]. SISTER HOMER NOTIFIED OF TRANSFER. PATIENT DID NOT HAVE BELONGINGS. NO WOUNDS. EDUCATION PROVIDED. MEDICAL RECORDS GIVEN TO AMBULANCE PERSONNEL. PATIENT IN STABLE CONDITION. NO ACUTE DISTRESS OR SOB NOTED.
== END 2019-04-22 16:30 | DRG 871 ==
LOC: ER 12:23 → TELE1 14:07 → MEDSG1 04-22 12:26
PROVIDERS: ADMIT Legal Medicine; ATTEND Legal Medicine
PROC: 05H533Z Insertion of Infusion Device into Right Subclavian Vein, Percutaneous Approach (ICD-10-PCS; principal; 2019-04-17)
PROC: B546ZZA Ultrasonography of Right Subclavian Vein, Guidance (ICD-10-PCS; 2019-04-17)
DX: A41.9 Sepsis, unspecified organism (principal); J69.0 Pneumonitis due to inhalation of food and vomit; N17.0 Acute kidney failure with tubular necrosis; G93.41 Metabolic encephalopathy; I50.32 Chronic diastolic (congestive) heart failure; E87.1 Hypo-osmolality and hyponatremia; I13.0 Hypertensive heart and chronic kidney disease with heart failure and stage 1 through stage 4 chronic kidney disease, or unspecified chronic kidney disease; N39.0 Urinary tract infection, site not specified; J45.901 Unspecified asthma with (acute) exacerbation; J98.11 Atelectasis; I11.0 Hypertensive heart disease with heart failure; Z86.73 Personal history of transient ischemic attack (TIA), and cerebral infarction without residual deficits; E11.22 Type 2 diabetes mellitus with diabetic chronic kidney disease; E11.42 Type 2 diabetes mellitus with diabetic polyneuropathy; E11.65 Type 2 diabetes mellitus with hyperglycemia; E78.5 Hyperlipidemia, unspecified; Z79.84 Long term (current) use of oral hypoglycemic drugs; Z79.4 Long term (current) use of insulin; Z79.82 Long term (current) use of aspirin; Z79.899 Other long term (current) drug therapy; N18.9 Chronic kidney disease, unspecified; K21.9 Gastro-esophageal reflux disease without esophagitis; E86.9 Volume depletion, unspecified; D64.9 Anemia, unspecified; Z86.59 Personal history of other mental and behavioral disorders; F01.50 Vascular dementia, unspecified severity, without behavioral disturbance, psychotic disturbance, mood disturbance, and anxiety; Z87.39 Personal history of other diseases of the musculoskeletal system and connective tissue; B96.1 Klebsiella pneumoniae [K. pneumoniae] as the cause of diseases classified elsewhere; E66.01 Morbid (severe) obesity due to excess calories
CPT/HCPCS: 36415; 36600; 70450-TC; 71045-TC; 76770-TC; 80048-TC; 80053-TC; 80061-TC; 80076-TC; 81000-TC; 82550-TC; 82570-TC; 82803-TC; 82947-TC; 82962-TC; 83605-TC; 83735-TC; 83970; 84100-TC; 84155; 84155-TC; 84165; 84300-TC; 84443-TC; 84484-TC; 85025-TC; 85730-TC; 87040-TC; 87081-TC; 87086-TC; 87186-TC; 92526; 92611-TC; 93307-TC; 94799-TC; A4216; G0378; J1644; J1815; J1956; J2185; J2248; J2543; J2920; J2930; J3490; J7030; J7060